=== PATIENT | male | born 1950 | race Caucasian/White ===

== ENCOUNTER 2020-09-16 11:08 | Day surgery (SDC) | payer MEDICARE, OTHER ==
[2020-09-16] VITALS (251 sets, daily range): BP systolic 137–1665; BP diastolic 82–115; PULSE 61–86; TEMP 97.4–98.3; O2SAT 95–99
[~2020-09-16] VITALS: Ht 190.5 cm; Wt 105.8 kg
[~2020-09-16 11:08] MED LIST: ASPIRIN 81M81 MG/TA2 PO; CIPRO 500MG TA500 MG PO; HYGROTON 2525 MG/TAB PO; PERCOCET 325 MG1 TA2 PO; PRINIVIL40 MG PO; SENOKOT S 50 MG1 TAB PO; VIAGRA50 M1 PO; ZOCOR 20MG20 MG PO
[2020-09-16 13:11] LABS: HEMATOCRIT 44.2 % (42.0-52.0); HEMOGLOBIN 14.1 g/dl (13.5-18.0); MEAN CELL VOLUME 89 fl (80.0-100.0); MEAN CORPUSCULAR HEMOGLOBIN 29 pg (27.0-31.0); MEAN CORPUSCULAR HGB CONC 32 g/dl (33.0-37.0); PLATELET COUNT 210 K/mm3 (130-400); RED BLOOD COUNT 4.95 M/mm3 (4.20-5.60)
[2020-09-16 13:18] LABS: INR 1.1 (0.8-3.0)
[2020-09-16 13:23] LABS: CALCIUM 9.6 mg/dL (8.4-10.2); CREATININE, serum 1.07 (0.66-1.25); POTASSIUM 4.3 mmol/L (3.4-5.0)
--- NOTE | 2020-09-16 14:08 | NUR ---
SEE MERGE DOCUMENTATION FOR MEDICATION ADMINISRATION TIMES AND INTRA/POST PROCEDURE SEDATION ASSESSMENTS. RIGHT HAND BARBEAU TEST POSITIVE.
[2020-09-17 04:15] VITALS: BP 135/81; PULSE 75; PULSE 76; TEMP 98.4
[2020-09-17 07:50] VITALS: O2SAT 96
[2020-09-17 08:00] VITALS: BP 131/81; PULSE 78; PULSE 80; TEMP 98.1; TEMP 98.5
[2020-09-17] MEDS ORDERED: LIPITOR20 MG PO (09:32)
[2020-09-17] MEDS ORDERED: BRILINTA90 MG PO (09:32)
--- NOTE | 2020-09-17 10:30 | NUR ---
Called pt's pharmacy at [facility] regarding Brilinta copay. Was informed that all [facility] are out of brilinta at this time. Called the [facility] and was informed they had it in stock. Checked with pt regarding transfering prescription. Received Brilinta voucher from our pharmacy. Prescriptions called into the [facility]. Pt updated on above. Discharge instructions discussed with pt. All questions answered. Pt wheeled out for discharge.
== END 2020-09-17 10:30 ==
LOC: COL.CAR 11:08 → ICU 16:26 → COL.CAR 09-17 10:30
PROVIDERS: Internal Medicine Cardiovascular Disease
DX: I35.0 Nonrheumatic aortic (valve) stenosis (principal); I25.10 Atherosclerotic heart disease of native coronary artery without angina pectoris; I10 Essential (primary) hypertension; E78.5 Hyperlipidemia, unspecified; R01.1 Cardiac murmur, unspecified; K21.9 Gastro-esophageal reflux disease without esophagitis; Z20.828 Contact with and (suspected) exposure to other viral communicable diseases; Z79.899 Other long term (current) drug therapy; Z79.82 Long term (current) use of aspirin; G47.33 Obstructive sleep apnea (adult) (pediatric); Z87.891 Personal history of nicotine dependence
CPT/HCPCS: OP; C9600; J1644; J2250; J2704; J3010; J7030; Q9967

== ENCOUNTER → 2020-11-14 | Outpatient (CLI) | payer MEDICARE, OTHER ==
[~2020-11-14] MED LIST changes: +BRILINTA90 MG PO; +LIPITOR20 MG PO
== END ==
LOC: ZCOL.LAB 12:18
DX: Z20.828 Contact with and (suspected) exposure to other viral communicable diseases (principal)